=== PATIENT | female | born 1955 | race Caucasian/White ===

== ENCOUNTER 2018-01-24 07:22 | Emergency (ER) | payer OTHER ==
[2018-01-24] MEDS ORDERED: Morphine 4 MG/ML VIAL ONE ×2 (08:08→08:41)
[2018-01-24] MEDS ORDERED: Ondansetron HCl/PF 4 MG/2 ML Vial ONE (08:08)
[2018-01-24] MEDS ORDERED: diphenhydrAMINE 50 MG/ML VIAL ONE (08:09)
[2018-01-24 08:15] LABS: Hemoglobin 14.6 g/dL (12.0-16.0); Mean Corpuscular Volume 91.3 fL (78.0-98.0); Mean Platelet Volume 6.3 fL (7.4-10.4); Platelet Count 180 thou/uL (130-400); RBC Distribution Width 11.1 % (11.5-14.5); Red Blood Cell (RBC) Count 4.58 mill/uL (4.20-5.40); White Blood Cell (WBC) Count 17.6 thou/uL (4.8-10.8)
[2018-01-24 08:19] LABS: Bilirubin Negative (Negative); Blood, Urine Small (Negative); Clarity Clear (Clear); Glucose, Urine (Dipstick) Negative (Negative); Leukocyte Moderate (Negative); Nitrite Positive (Negative); Protein, Urine (Dipstick) Trace mg/dL (Neg-Trace); Urobilinogen 0.2 mg/dL (0.2-1.0); pH, Urine 5.5 (5.0-9.0)
[2018-01-24 08:25] LABS: Anion Gap 20 mmol/L (10-20); BUN (Urea Nitrogen) 18 mg/dL (9.8-20.1); Calc. Creatinine Clearance 0 mL/min (70-130); Carbon Dioxide 17 mmol/L (23-31); Chloride 104 mmol/L (98-107); Estimated GFR-MDRD 61; Potassium 3.5 mmol/L (3.5-5.1); Sodium 137 mmol/L (136-145)
[2018-01-24 08:26] LABS: ALT (SGPT) 22 U/L (8-55); AST (SGOT) 27 U/L (5-34); Albumin 4.2 g/dL (3.4-4.8); Alkaline Phosphatase 88 U/L (40-150); Bilirubin, Total 0.9 mg/dL (0.2-1.2); Calcium 9.9 mg/dL (7.8-10.44); Globulin 3.4 g/dL (2.4-3.5); Glucose 125 mg/dL (80-115); Lipase 9 U/L (8-78); Protein, Total 7.6 g/dL (6.0-8.3)
[2018-01-24 08:27] LABS: Bacteria/HPF 2+ HPF (None Seen); Hyaline Casts/LPF 0-3 HYALINE CAST LPF (0-3 Hyaline); RBC/HPF 0-3 HPF (0-3)
[2018-01-24] MEDS ORDERED: Sodium Chloride 0.9% 1,000 ML BAG ONE (08:30)
[2018-01-24 08:50] LABS: Band 10 % (5-11); Lymphocytes 3 % (21-51); MDiff Complete? YES; Monocytes 3 % (0-10); Neutrophil 84 % (42-75); PLT Morphology Comment Appears Adequate; RBC Morphology Normal
[2018-01-24] MEDS ORDERED: Iopamidol 370 76% 100 ML VIAL ONE (09:00)
--- NOTE | 2018-01-24 10:01 | CT ---
CT ABDOMEN AND PELVIS WITH IV CONTRAST: HISTORY: Left lower quadrant abdominal pain with nausea. FINDINGS: There are dependent changes in the lung bases. The liver demonstrates decreased attenuation compared to the spleen consistent with fatty infiltration. No gallstones, gallbladder wall thickening, or pe richolecystic fluid is seen. The spleen, pancreas, adrenal glands, and right kidney are normal. The re is left-sided hydroureteral nephrosis due to a 4 mm left distal ureteric calculus (close to the l eft UVJ). There is left perinephric inflammatory change. There is delayed enhancement of the left [place] compared to the right. No free air or free fluid or lymphadenopathy is seen. Uterus is normal. There is sigmoid diverticul osis. A normal-appearing apendix is present. There is no evidence of aneurysmal dilatation of the a bdominal aorta. There are degenerative changes in the spine. IMPRESSION: 1. Obstructing 4 mm left distal ureteric calculus. 2. Sigmoid diverticulosis. 3. Fatty liver. POS: BING
== END 2018-01-24 10:37 | disposition short-term general hospital (02) ==
LOC: MADERS 07:22
DX: N13.2 Hydronephrosis with renal and ureteral calculous obstruction (principal); N12 Tubulo-interstitial nephritis, not specified as acute or chronic; I10 Essential (primary) hypertension; Z79.899 Other long term (current) drug therapy
CPT/HCPCS: 74177; 80053; 81003; 81015; 83605; 83690; 85025; 87040; 87077; 87086; 87149; 87186; 96361; 96365; 96375; 96376; J1200; J1956; J2270; J2405